=== PATIENT | female | born 1975 | race Caucasian/White ===

== ENCOUNTER 2019-08-27 08:41 | Emergency (ER) | payer MEDICAID, SELFPAY ==
[2019-08-27 07:18] VITALS: BP 130/102; PULSE 105; RESP 18; TEMP 37.2; O2SAT 99; BMI 23.9
--- NOTE | 2019-08-27 07:30 | PC.NURSE ---
Pt wound cleaned with hibaclens and redressed with 4x4 and coban.
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
[2019-08-27 07:34] VITALS: BP 136/83; PULSE 91; O2SAT 100
[2019-08-27 07:51] VITALS: BP 125/79; PULSE 85; O2SAT 99
[2019-08-27 08:20] VITALS: BP 117/69; PULSE 89; O2SAT 99
--- NOTE | 2019-08-27 08:20 | PC.NURSE ---
Pt is sleeping at this time.
[2019-08-27 08:23] LABS: Appearance,Urine CLEAR (Clear); Bilirubin,Urine Negative (Negative); Blood, Urine 1+ (Negative); Color,Urine YELLOW (Yellow); Glucose,Urine (UA) Negative (Negative); Ketones,Urine Negative (Negative); Leukocyte Esterase,Urine Negative (Negative); Microscopic, Urine URINE MICROSCOPIC (MICROSCOPIC); Nitrate,Urine Negative (Negative); Protein,Urine Negative (Negative); Specific Gravity, Urine 1.025 (1.005-1.030); Urobilinogen,Urine 0.2 EU/dl (0.2)
--- NOTE | 2019-08-27 08:31 | PC.NURSE ---
STATES THAT HE DOESN'T WISH TO HAVE ANY BLOOD WORK ON PT.
[2019-08-27 08:38] LABS: Barbiturates Screen,Urine Negative ng/ml (<200); Benzodiazepines Screen,Urine Negative ng/ml (<200)
[2019-08-27 08:39] LABS: Amphetamine/Metha Screen,Urine Negative ng/ml (<1000); Bacteria,Urine Trace /lpf; Mucus,Urine Trace /lpf
[2019-08-27 08:40] LABS: Cannabinoid Screen,Urine Positive ng/ml (<50); Cocaine Screen,Urine Negative ng/ml (<300)
[2019-08-27 08:41] LABS: Methadone Screen,Urine Negative ng/ml (<300)
[2019-08-27 08:42] LABS: Opiate Screen,Urine Positive ng/ml (<300); Phencyclidine Screen,Urine Negative ng/ml (<25)
--- NOTE | 2019-08-27 09:32 | PC.NURSE ---
Lucia Bailey called care managment they are working on transportation for pt.
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
--- NOTE | 2019-08-27 10:20 | SW/DCPLANNER ---
Addendum entered by Otilia Zhang 08/27/19 11:28: Patients ride can not come and I have contacted [employer] [employer] back. They will transport this patient home. Addendum entered by Otilia Zhang 08/27/19 10:32: I have cancelled transportation for this patient due to ED staff (CC) stating that patient has found a ride home. Original Note: I have arranged [employer] back home for this patient.
[2019-08-27 10:27] VITALS: BP 122/85; PULSE 87; RESP 20; TEMP 36.8; O2SAT 98
== END 2019-08-27 10:28 | disposition home or self-care (01) ==
PROVIDERS: Emergency Provider Family Medicine
DX: S51.812A Laceration without foreign body of left forearm, initial encounter (principal); X78.1XXA Intentional self-harm by knife, initial encounter; Y92.019 Unspecified place in single-family (private) house as the place of occurrence of the external cause; F32.9 Major depressive disorder, single episode, unspecified; Z20.828 Contact with and (suspected) exposure to other viral communicable diseases; F17.210 Nicotine dependence, cigarettes, uncomplicated; Z23 Encounter for immunization
CPT/HCPCS: 12002; 80305; 81001; 90471; 90714; 99283